=== PATIENT | male | born 1965 | race Caucasian/White ===

== ENCOUNTER → 2018-04-29 | Outpatient (CLI) | payer OTHER ==
[~2018-04-29] MED LIST: COLACE100 MG OR; IBUPROFEN 200200 M1 OR; LIDOCAINE OINTMENT; LORTAB 5 MG/5001 TAB PO
--- NOTE | ~2018-04-29 | PFR/MVV ---
[facility] [place] [address] PULMONARY FUNCTION MVV/REPORT Name: BENJY CUADRA Room #: REG [facility]#: [id number] Admission: 04/29/18 Attend Phys: Nelson Brown MD Discharge: Date of : 61 Report #: [id number] THIS REPORT FOR: //name// >> SPIROMETRY: (BTPS) Height: in cm Weight: lbs kg Exam Date: PRE-RX POST-RX PRED BEST %PRED BEST %PRED %CHG FVC LITERS . . . . . . FEV1 LITERS . . . . . . FEV1/FVC % . . . . . . AWH26-08% L/Sec . . . . . . PEF L/SEC . . . . . . FEF50/FIF50 UNITLESS . . . . . . MVV L/Min . . . f 1/Min . . . >> LUNG VOLUMES: (BTPS) PRE-RX POST-RX PRED AVG %PRED AVG %PRED %CHG VC Liters . . . . . . TLC Liters . . . . . . RV Liters . . . . . . RV/TLC % . . . . . . FRC PL Liters . . . . . . FRC N2 Liters . . . . . . ERV Liters . . . . . . IC Liters . . . . . . >> DIFFUSION: DLCO ml/Min/mmHg . . . . . . DL Chuck ml/Min/mmHg . . . . . . DLCO/VA ml/Min/mmHg . . . . . . VA Liters . . . . . . COMMENTS: COMMENTS: >> RESISTANCE: [facility] [address] [place] [address] PULMONARY FUNCTION MVV/REPORT Name: BENJY CUADRA [id number] Admission: 04/29/18 Attend Phys: Nelson Brown MD Discharge: Date of : 61 Report #: [id number] PRE-RX PRED AVG %PRED Raw Total cmH20/L/Sec . . . Raw Insp cmH20/L/Sec . . . Raw Exp cmH20/L/Sec . . . Raw cmH20/L/Sec . . . Gaw L/Sec/cmH20 . . . sRaw cmH20 Sec . . . sGaw l/cmH20 Sec . . . Vtq Liters . . . # = OUTSIDE 95% CONFIDENCE INTERVAL CALIBRATION: PRED: 3.00 ACTUAL: EXP 3.01 INSP 3.02 [facility]02 [facility] [id number] N-1804-4 >> INTERPRETATION/IMPRESSION: CC: Nelson Brown DATE OF SERVICE: 04/29/2018 FEV1 is 2.63 liters (68%), FVC is 4.16 liters (87%). FEV1/FVC ratio is 63%. Postbronchodilator response with no significant response to therapy. Total lung capacity is 7.20 liters (103%). RV is 3.04 liters (130%). Diffusing capacity is slightly decreased at 72%. IMPRESSION: Pulmonary function studies are consistent with moderate airflow obstructive defect. There is no significant response to bronchodilator therapy. There is mild air trapping. Diffusing capacity is borderline. By: Junior Gao MD /nt
== END ==
LOC: CAT 08:15
DX: Z13.6 Encounter for screening for cardiovascular disorders (principal); E78.00 Pure hypercholesterolemia, unspecified

== ENCOUNTER → 2018-04-29 | Outpatient (CLI) | payer OTHER | LOC: PUL 08:14 | DX: R06.00 Dyspnea, unspecified (principal) ==

== ENCOUNTER 2018-09-27 05:35 | Day surgery (SDC) | payer OTHER ==
[~2018-09-27] VITALS: Ht 180.3 cm; Wt 90.7 kg
--- NOTE | ~2018-09-27 | O ---
[facility] [place] [address] OPERATIVE REPORT Name: BENJY CUADRA Room #: DEP [facility] [id number] Admission: 09/27/18 ������������������ Attend Phys: Alexandro Snowden MD Discharge: 09/27/18 ������������������ Date of : 61 Report #: [id number] THIS REPORT FOR: //name// CC: Nelson Snowden DATE OF SERVICE: 09/27/2018 PREOPERATIVE DIAGNOSIS: Umbilical hernia. POSTOPERATIVE DIAGNOSIS: Umbilical hernia. OPERATIVE PROCEDURE DONE: Laparoscopic repair of umbilical hernia with mesh. SURGEON: Alexandro Snowden MD INDICATIONS FOR PROCEDURE: The patient is a 53-year-old male who presented with features of a symptomatic umbilical hernia, which is causing him discomfort. The patient wished to have this repaired. The patient was advised laparoscopic repair of the same. DESCRIPTION OF PROCEDURE: After explaining to the patient in detail and consent was obtained, the patient was identified in the preoperative holding area. The patient was transferred to the operating room and was placed in supine position. Sequential compression devices were placed for DVT prophylaxis. The preoperative antibiotics were given. After induction of anesthesia, the abdomen was prepped and draped in a sterile fashion. Through a left upper quadrant 1 cm incision and using Optiview technique, peritoneal cavity was entered and pneumoperitoneum was created. Thereafter, under direct vision, another 8 mm trocar was placed in the left flank and another 5 mm trocar was placed in the left lower quadrant. Upon initial inspection, the patient was noted to have umbilical hernia with a 1.5 cm defect mostly containing fat. This was all gently reduced. The surrounding preperitoneal fat was also gently dissected off. Thereafter, I chose an 11.4 cm diameter mesh, which was a Ventralight mesh, and a Niobrara-Adama suture was placed in the center of the mesh. The mesh was then introduced into the abdominal cavity. The Niobrara-Adama suture was then used to approximate the hernial defect size using a suture passer. Thereafter, the mesh was tacked circumferentially at 1 cm intervals using SecureStrap. Absolute hemostasis was ensured. The abdomen was then desufflated. The incisions were closed with 4-0 Monocryl. Dermabond was applied. The patient was stable at the end of the procedure. The patient was awoken from anesthesia and was transferred to the recovery room in stable condition. ESTIMATED BLOOD LOSS: Minimal. [address] [address] OPERATIVE REPORT Name: BENJY CUADRA Room #: DEP [facility]#: [id number] Admission: 09/27/18 ������������������ Attend Phys: Alexandro Snowden MD Discharge: 09/27/18 ������������������ Date of : 61 Report #: [id number] CONDITION OF THE PATIENT: Stable. FLUIDS GIVEN: Per anesthesia note. SPECIMENS SENT: None. COMPLICATIONS: None. ANESTHESIA: General anesthesia. ��������������������������������������������� ���������������������������������������� By: ��������������������������������������������� 2033 06 MD natalia Keith
[~2018-09-27 05:35] MED LIST changes: +ALLER-TEC D 5-1 EACH PO; +CRESTOR5 MG PO; +PROZAC20 MG PO
[2018-09-27 14:14] VITALS: BP 154/98
[2018-09-27 18:23] VITALS: BP 154/98
== END 2018-09-27 19:24 | disposition home or self-care (01) ==
LOC: OR 05:35 → TBA 05:35 → OR 08:48
DX: K42.9 Umbilical hernia without obstruction or gangrene (principal); E78.5 Hyperlipidemia, unspecified; F32.9 Major depressive disorder, single episode, unspecified; F17.210 Nicotine dependence, cigarettes, uncomplicated; Z98.890 Other specified postprocedural states; Z88.8 Allergy status to other drugs, medicaments and biological substances; Z79.899 Other long term (current) drug therapy
CPT/HCPCS: 50010; 50101; 50249; 50386; 50455; 50555; 50980; 50984; 52265; 52266; 54022; 54118; 56526; 56530; 57092; 62110; 62900; 70005